=== PATIENT | male | born 1975 | race Caucasian/White ===

== ENCOUNTER 2017-09-03 13:30 | Outpatient (CLI) | payer MEDICARE, MEDICAID | END 2017-09-03 14:00 | disposition home or self-care (01) | LOC: RT.N 13:30 | PROVIDERS: ATTEND Family Medicine | DX: R53.83 Other fatigue (principal); R20.2 Paresthesia of skin; R35.1 Nocturia | CPT/HCPCS: 81001; 87086; 93005 ==

== ENCOUNTER 2017-09-03 14:20 | Outpatient (CLI) | payer MEDICARE ==
[2017-09-03 19:07] LABS: BILIRUBIN,URINE NEGATIVE (NEGATIVE); GLUCOSE, URINE (UA) NEGATIVE (NEGATIVE); KETONES,URINE (UA) NEGATIVE (NEGATIVE); LEUKOCYTE ESTERASE, URINE NEGATIVE (NEGATIVE); NITRITE,URINE NEGATIVE (NEGATIVE); OCCULT BLOOD,URINE NEGATIVE (NEGATIVE); PROTEIN,URINE NEGATIVE (NEGATIVE); UROBILINOGEN,URINE 0.2 (NORMAL) E.U./dL (NORMAL)
[2017-09-03 19:17] LABS: BACTERIA,URINE Rare /HPF (None Seen); CLARITY,URINE CLEAR (CLEAR); RBC,URINE 0-5 /HPF (0-5); SQUAMOUS EPITHELIAL CELL,UR RARE Squamous (<= Few)
== END 2017-09-03 14:21 ==
LOC: LAB.N 14:20
PROVIDERS: ATTEND Family Medicine
DX: R35.1 Nocturia (principal)
CPT/HCPCS: 81001; 87086

== ENCOUNTER 2019-03-22 20:16 | Emergency (ER) | payer MEDICAID, MEDICARE ==
[2019-03-22 20:22] VITALS: BP 117/82
[2019-03-22] MEDS ORDERED: MELOXICAM 7.5 MG TABLET PO STA (22:46)
--- NOTE | 2019-03-22 22:47 | ED Physician Documentation ---
History of Present Illness - Stated complaint Stated Complaint: R FOOT INJURY - Chief complaint Chief Complaint: Trauma Ext - History obtained from History obtained from: Patient, Family - History of Present Illness Timing: How many days ago (3) Pain level max: 5 Pain level now: 5 - Additonal information Additional information: 43-year-old male with redness and swelling to the dorsum of the midfoot of the right foot. No injury noted. Worse with walking, better with rest. Seems to have worsened over the past 3 days. Review of Systems Constitutional: denies: Fever, Chills Respiratory: denies: Cough GI: denies: Nausea, Vomiting Skin: denies: Rash PD PAST MEDICAL HISTORY - Past Medical History Past Medical History: Yes Cardiovascular: None Endocrine/Autoimmune: None Psych: Bipolar disorder - Past Surgical History Past Surgical History: No - Present Medications Home Medications: Ambulatory Orders Medication Instructions Recorded Confirmed Meloxicam [Mobic] 15 mg PO DAILY PRN #20 tablet 03/22/19 - Allergies Allergies/Adverse Reactions: Allergies Allergy/AdvReac Type Severity Reaction Status Date / Time No Known Drug Allergies Allergy Verified 03/22/19 20:22 - Social History Does the pt smoke?: Yes Smoking Status: Current every day smoker Does the pt drink ETOH?: Yes Does the pt have substance abuse?: No Substance Use and Type: Marijuana - Immunizations Immunizations are current?: Yes PD ED PE NORMAL - Vitals Vital signs reviewed: Yes - General General: Alert and oriented X 3, No acute distress - HEENT HEENT: Moist mucous membranes - Neck Neck: Supple, no meningeal sign - Derm Derm: Warm and dry - Extremities Extremities: Other (R foot - mild swelling and TTP over the midfoot. no pain with PROM of the toes. no tenderness along the plantar aspect. normal ROM of the ankle without pain. NVI) - Neuro Neuro: Alert and oriented X 3 - Psych Psych: Normal mood, Normal affect Results - Vitals Vitals: Vital Signs - 24 hr 03/22/19 23:30 Heart Rate 72 Respiratory 18 Rate O2 Saturation 98 Oxygen O2 Source Room air - Rads (name of study) R foot xray Radiology: Prelim report reviewed, EMP read contemporaneously, See rad report (Soft tissue swelling, but no evidence of fracture or radiopaque foreign body. ) PD MEDICAL DECISION MAKING - ED course Complexity details: reviewed results, re-evaluated patient, considered differential, d/w patient, d/w family ED course: 43-year-old male with swelling over the dorsum of the midfoot of the right foot for the past several days. No warmth. Does not seem to be spreading. Does not appear consistent with infection or cellulitis. No acute findings on x-ray. Does work maintenance and walks a lot. Possible tendinitis versus arthritis? Placed in a postoperative shoe and will place on anti-inflammatories for home. Patient counseled regarding signs and symptoms for which I believe and urgent re-evaluation would be necessary. Patient with good understanding of and agreement to plan and is comfortable going home at this time This document was made in part using voice recognition software. While efforts are made to proofread this document, sound alike and grammatical errors may occur. Departure - Departure Disposition: 01 Home, Self Care Clinical Impression: Swelling of right foot Condition: Good Instructions: ED Sprain Foot Follow-Up: your,doctor in 1 week. [Other] Prescriptions: Meloxicam [Mobic] 15 mg PO DAILY PRN #20 tablet PRN Reason: pain Comments: Return if you worsen. The cause of your symptoms is unclear tonight. Follow up with your doctor for further care. Wear the post operative shoe for the next several days to see if this helps your symptoms. Discharge Date/Time: 03/22/19 23:31
--- NOTE | 2019-03-22 23:07 | XRAY Report ---
Reason: r foot pain, swelling, no injury Procedure Date: 03/22/2019 Accession Number: [id number] / [id number] Procedure: XR - Foot 3 View RT CPT Code: FULL RESULT: EXAM: RIGHT FOOT RADIOGRAPHY EXAM DATE: 03/22/2019 10:32 PM. CLINICAL HISTORY: R foot pain, swelling, no injury. COMPARISON: None. TECHNIQUE: 3 views. FINDINGS: Bones: Normal. No fractures or bone lesions. Joints: Minimal degenerative changes at the first metatarsophalangeal joint. Soft Tissues: Soft tissue swelling. No radiopaque foreign body. IMPRESSION: Soft tissue swelling, but no evidence of fracture or radiopaque foreign body. [facility]
== END 2019-03-22 23:31 | disposition home or self-care (01) ==
LOC: ED 20:16
DX: M79.89 Other specified soft tissue disorders (principal); M79.671 Pain in right foot; F17.200 Nicotine dependence, unspecified, uncomplicated
CPT/HCPCS: 73630; 99283; 99284; A9270

== ENCOUNTER 2019-06-18 12:43 | Outpatient (CLI) | payer MEDICARE, OTHER ==
--- NOTE | 2019-06-19 07:28 | XRAY Report ---
Reason: NECK AND BACK PAIN Procedure Date: 06/18/2019 Accession Number: [id number] / [id number] Procedure: XRN - Cervical Spine 2 View CPT Code: Final Report FULL RESULT: EXAM: CERVICAL SPINE RADIOGRAPHY EXAM DATE: 06/18/2019 01:21 PM. CLINICAL HISTORY: NECK AND BACK PAIN. Limited range of motion COMPARISONS: None. TECHNIQUE: 3 views. FINDINGS: Alignment: Normal. No spondylolisthesis or scoliosis. Bones: The cervical vertebral bodies and posterior elements are well visualized from the skull base through C7. No fractures or bone lesions. Disks: Normal. Disk heights are maintained. Facets: No degenerative disease. Soft Tissues: Normal. No prevertebral soft tissue swelling. The visualized lung apices are clear. IMPRESSION: Normal cervical spine radiography. [facility]
--- NOTE | 2019-06-19 07:32 | XRAY Report ---
Reason: NECK AND BACK PAIN Procedure Date: 06/18/2019 Accession Number: [id number] / [id number] Procedure: XRN - Thoracic Spine 3 View CPT Code: Final Report FULL RESULT: EXAM: THORACIC SPINE RADIOGRAPHY EXAM DATE: 06/18/2019 01:21 PM. CLINICAL HISTORY: NECK AND BACK PAIN. COMPARISON: None. TECHNIQUE: 3 views. FINDINGS: Alignment: There is a slight curvature of the lumbar spine convex left. It may be positional. Bones: No fractures or bone lesions. Disks: The intervertebral disk spaces exhibit normal height. There are multiple Schmorl's nodes of the mid and lower thoracic spine. Soft Tissues: Normal. The visualized lungs and cardiomediastinal silhouette are normal. IMPRESSION: Normal thoracic spine radiography. [facility]
== END 2019-06-18 12:44 | disposition home or self-care (01) ==
LOC: DI.N 12:43
PROVIDERS: ATTEND Family Medicine
DX: M54.2 Cervicalgia (principal)
CPT/HCPCS: 72040; 72072